=== PATIENT | female | born 1990 | race Caucasian/White ===

== ENCOUNTER 2018-01-10 13:24 | Emergency (ER) | payer MEDICAID ==
[2018-01-10] MEDS ORDERED: KETOROLAC 15 MG/1 ML SDV IVP ONE (15:55)
[2018-01-10] MEDS ORDERED: ONDANSETRON 4 MG/2 ML VIAL IVP ONE (15:55)
[2018-01-10 16:11] LABS: PLATELET COUNT 324 10^3/uL (150-400)
[2018-01-10] MEDS ORDERED: IOPAMIDOL (ISOVUE-300) 100 ML BTL ONE (16:48)
--- NOTE | 2018-01-10 17:26 | EDPHY ---
H & P Time Seen by Provider: 01/10/18 15:42 HPI/ROS: CHIEF COMPLAINT: Abdominal pain HISTORY OF PRESENT ILLNESS: Patient is a 27-year-old female with a history of abdominal pain here with worsening left upper quadrant abdominal pain for the last 3 days. She is visiting from [facility] and reports that 3 days ago she started with nausea and left upper quadrant pain that has been gradually increasing. She denies any fever, dysuria, urinary frequency, emesis. There has been no blood in the stool. She did have a colonoscopy and upper endoscopy 3 years ago she reports the colonoscopy was normal and upper endoscopy noted some "redness." During her workup she was also diagnosed with a spastic spleen. She takes no prescription medication. She has an IUD in reports irregular periods. REVIEW OF SYSTEMS: Constitutional: No fever, no chills. Eyes: No discharge. ENT: No sore throat. Cardiovascular: No chest pain, no palpitations. Respiratory: No cough, no shortness of breath. Gastrointestinal: No abdominal pain, no vomiting. Genitourinary: No hematuria. Musculoskeletal: No back pain. Skin: No rashes. Neurological: No headache. Smoking Status: Never smoked Physical Exam: General Appearance: Alert and no distress. Eyes: Pupils equal and round no injection. Respiratory: Chest is nontender, lungs are clear to auscultation. Cardiac: regular rate and rhythm. Gastrointestinal: Abdomen is soft and guarding to left upper quadrant, no masses, bowel sounds normal. On repeat examination after IV fluids, Zofran and Toradol patient has a nontender abdomen. Musculoskeletal: Neck is supple and nontender. Extremities have full range of motion and are nontender. Skin: No rashes or lesions. Constitutional: Initial Vital Signs Temperature (C) 36.7 C 01/10/18 13:28 Heart Rate 73 01/10/18 13:28 Respiratory Rate 18 01/10/18 13:28 Blood Pressure 137/86 H 01/10/18 13:28 O2 Sat (%) 95 01/10/18 13:28 O2 Delivery Mode Room Air Allergies/Adverse Reactions: No Known Allergies Allergy (Unverified 01/10/18 13:27) Home Medications: Medication Instructions Recorded MIRENA 01/10/18 Ondansetron [Zofran Odt] 4 mg PO Q8 #12 tab.rapdis 01/10/18 Ranitidine HCl 01/10/18 traZODone 01/10/18 Medical Decision Making - Diagnostics Imaging Results: Imaging Impressions Abdomen CT 01/10/18 15:55 Impression: 1. Nonobstructive cholelithiasis. 2. No CT evidence of appendicitis, renal calculus, abscess or bowel obstruction. Findings were communicated by telephone with Dr. Goran Carranza at 2017 17:19 Procedures: 27-year-old female here with 3 days of worsening abdominal pain father have laboratory studies showing no leukocytosis, abnormalities and kidney function or evidence of biliary disease. UA shows no evidence of UTI or hematuria. CT scan reveals cholelithiasis without evidence of cholecystitis. Discussed these findings with patient who agrees to follow up closely with her senior information security architect when she returns to [place]. Indications for return to the ER were discussed. I did see this patient independently under the supervision of my secondary supervising physician Dr. Suazo. - Data Points Laboratory Results: Laboratory Results 01/10/18 16:02 01/10/18 16:02 01/10/18 01/10/18 01/10/18 16:02 16:02 16:02 WBC 9.49 10^3/uL 10^3/uL (3.80-9.50) RBC 4.41 10^6/uL 10^6/uL (4.18-5.33) Hgb 13.9 g/dL g/dL (12.6-16.3) Hct 40.4 % % (38.0-47.0) MCV 91.6 fL fL (81.5-99.8) MCH 31.5 pg pg (27.9-34.1) MCHC 34.4 g/dL g/dL (32.4-36.7) RDW 12.3 % % (11.5-15.2) Plt Count 324 10^3/uL 10^3/uL (150-400) MPV 10.4 fL fL (8.7-11.7) Neut % (Auto) 65.2 % % (39.3-74.2) Lymph % (Auto) 26.8 % % (15.0-45.0) [place] % (Auto) 6.0 % % (4.5-13.0) Eos % (Auto) 1.2 % % (0.6-7.6) Baso % (Auto) 0.5 % % (0.3-1.7) Nucleat RBC Rel Count 0.0 % % (0.0-0.2) Absolute Neuts (auto) 6.19 10^3/uL 10^3/uL (1.70-6.50) Absolute Lymphs (auto) 2.54 10^3/uL 10^3/uL (1.00-3.00) Absolute Monos (auto) 0.57 10^3/uL 10^3/uL (0.30-0.80) Absolute Eos (auto) 0.11 10^3/uL 10^3/uL (0.03-0.40) Absolute Basos (auto) 0.05 10^3/uL 10^3/uL (0.02-0.10) Absolute Nucleated RBC 0.00 10^3/uL 10^3/uL (0-0.01) Immature Gran % 0.3 % % (0.0-1.1) Immature Gran # 0.03 10^3/uL 10^3/uL (0.00-0.10) Sodium 141 mEq/L mEq/L (135-145) Potassium 3.8 mEq/L mEq/L (3.3-5.0) Chloride 105 mEq/L mEq/L (97-110) Carbon Dioxide 21 mEq/l L mEq/l (22-31) Anion Gap 15 mEq/L mEq/L (8-16) BUN 9 mg/dL mg/dL (7-23) Creatinine 0.7 mg/dL mg/dL (0.6-1.0) Estimated GFR > 60 Glucose 92 mg/dL mg/dL (70-100) Calcium 10.1 mg/dL mg/dL (8.5-10.4) Total Bilirubin 0.5 mg/dL mg/dL (0.1-1.4) AST 19 IU/L IU/L (14-46) ALT 33 IU/L IU/L (9-52) Alkaline Phosphatase 64 IU/L IU/L (38-126) Total Protein 7.5 g/dL g/dL (6.3-8.2) Albumin 4.5 g/dL g/dL (3.5-5.0) Lipase 45 IU/L IU/L (23-300) Beta HCG, Qual NEGATIVE Urine Color Urine Appearance Urine pH Ur Specific [place] Urine Protein Urine Ketones Urine Blood Urine Nitrate Urine Bilirubin Urine Urobilinogen Ur Leukocyte Esterase Urine Glucose 01/10/18 13:35 WBC RBC Hgb Hct MCV MCH MCHC RDW Plt Count MPV Neut % (Auto) Lymph % (Auto) [place] % (Auto) Eos % (Auto) Baso % (Auto) Nucleat RBC Rel Count Absolute Neuts (auto) Absolute Lymphs (auto) Absolute Monos (auto) Absolute Eos (auto) Absolute Basos (auto) Absolute Nucleated RBC Immature Gran % Immature Gran # Sodium Potassium Chloride Carbon Dioxide Anion Gap BUN Creatinine Estimated GFR Glucose Calcium Total Bilirubin AST ALT Alkaline Phosphatase Total Protein Albumin Lipase Beta HCG, Qual Urine Color PALE YELLOW Urine Appearance CLEAR Urine pH 6.0 (5.0-7.5) Ur Specific [place] 1.004 (1.002-1.030) Urine Protein NEGATIVE (NEGATIVE) Urine Ketones NEGATIVE (NEGATIVE) Urine Blood NEGATIVE (NEGATIVE) Urine Nitrate NEGATIVE (NEGATIVE) Urine Bilirubin NEGATIVE (NEGATIVE) Urine Urobilinogen NEGATIVE EU EU (0.2-1.0) Ur Leukocyte Esterase NEGATIVE (NEGATIVE) Urine Glucose NEGATIVE (NEGATIVE) Medications Given: Discontinued Medications Ketorolac Tromethamine (Toradol) 15 mg IVP EDNOW ONE Stop: 01/10/18 15:56 Last Admin: 01/10/18 16:05 Dose: 15 mg Ondansetron HCl (Zofran) 4 mg IVP EDNOW ONE Stop: 01/10/18 15:56 Last Admin: 01/10/18 16:05 Dose: 4 mg Departure - Departure Disposition: Home, Routine, Self-Care Clinical Impression: Abdominal pain, Cholelithiases Condition: Good Instructions: Biliary Colic (ED) Additional Instructions: Please follow up with her senior information security architect when he returned home. Return to ER for worsening pain or other concerning symptoms. Referrals: NONE *PRIMARY CARE P,. [Primary Care Provider] - As per Instructions Prescriptions: Ondansetron [Zofran Odt] 4 mg PO Q8 #12 tabclaude
[2018-01-10 17:35] VITALS: BP 115/71
== END 2018-01-10 17:35 | disposition home or self-care (01) ==
DX: K80.20 Calculus of gallbladder without cholecystitis without obstruction (principal)
CPT/HCPCS: 96374; J1885; J2405; Q9967